=== PATIENT | male | born 1965 | race Caucasian/White ===

== ENCOUNTER 2022-05-24 17:02 | Emergency (ER) | payer BC, SELFPAY ==
[2022-05-24 17:08] VITALS: BP 158/91; PULSE 77; RESP 18; TEMP 36.3; O2SAT 99
--- NOTE | 2022-05-24 17:19 | W.ED.GENAD ---
Discharge Plan Disposition Patient Disposition: Home Condition: Stable Discharge Details Chief Complaint: Laceration Clinical Impression: Laceration of left hand Primary Care Provider: Stuart Nielson ED Provider: Obie Shafer Home Meds and New Rx's Prescriptions: No Action valacyclovir 1 gram Tablet 1,000 mg PO DAILY Discharge Instructions Instructions: Laceration (ED) Additional Instructions: you had 4 sutures placed keep the woud clean, if it gets dirty gently scrub with soap and water return in 7-10 days for suture removal or sooner if signs of infection such as spreading redness, or yellow/white discharge from the wound Medical Decision Making 57 yo male who denies chronic medical problems who comes in with cc of left hand laceration. He was unscrewing a bolt and his hand slipped and his posterior left hand got cut renato piece of sheet metal. Denies any falls or other injuries. He has an approximately 2cm laceration of the posterior left handed between the thumb and index finger. Has intact sensation and pulses and full rom of the fingers and wrist. No evidence of neurovascular or tendon injury. Will require sutures, will place local anesthetic and irrigate and evaluate further. pt had wound irrigated extensively, goes down to subcutaneous tissue, no tendon or muscle exposed, closed with 4 sutures without complications. He is stable for d/c, advised to return in 7-10 days for evaluation for suture removal and sooner if signs of infection develop Differential Diagnosis Differential Diagnosis: laceration, abrasion Sign Out No HPI General Mode of arrival: ambulatory. Date/Time Provider Initiated Documentation: 05/24/22 17:13. Limitations to Documentation: no limitations. Information obtained by: patient. History of Present Illness 57 year old M presents to the emergency department with the chief complaint of left hand laceration, described as moderate, Quality is described as aching, Patient reports no radiation. Patient started experiencing this hour(s) (1) and it has been constant. No relieving factors improve symptom(s), No exacerbating factors reported . Patient notes no other symptoms.. Patient did receive the following treatments prior to arrival, none Related Data Home Medications Medication Instructions Recorded Confirmed valacyclovir 1 gram tablet 1,000 mg PO DAILY 05/24/22 05/24/22 Allergies Allergy/AdvReac Type Severity Reaction Status Date / Time No Known Allergies Allergy Unverified 05/24/22 17:12 General Stated Complaint: Laceration DANDY: 3 Review of Systems All systems reviewed & are unremarkable except as noted in HPI and below Constitutional Constitutional: Denies chills, Denies fever(s) and Denies weakness Cardiovascular Cardiovascular: Denies chest pain and Denies dyspnea Respiratory Respiratory: Denies cough and Denies dyspnea Gastrointestinal Gastrointestinal: Denies abdominal pain, Denies nausea and Denies vomiting Integumentary/Breasts Skin/Breast: Denies rash Neurologic Neurologic: Denies weakness [facility] All Active Problems (Updated 05/24/22 @ 17:53 by Obie Shafer MD) Laceration of left hand (Acute) Social History Smoking/Tobacco Use Status: Never Smoking risk assessment performed?: Yes Alcohol Intake: current Alcohol Intake frequency: 0-2 drinks per day Alcohol type: beer, wine and hard liquor Drug use: Never Substance use type: does not use Do you feel safe at home: Yes Do you feel safe in your relationship?: Yes Additional Social history: at bedside Exam Const General: no acute distress Orientation: alert HENMT Head: normal to inspection Ears: external ears normal General nose exam: external nose normal Mouth: moist mucous membranes Eyes General: appearance normal, both eyes and all related structures Neck Neck: normal visual inspection Resp Effort & Inspection: normal respiratory effort and able to speak in complete sentences Cardio Rate: regular rate Skin General skin exam: no rashes or lesions noted Neuro General: patient alert and patient oriented x3 Extrem General: full ROM and capillary refill normal Psych Mental Status: mental status grossly normal Course Vital Signs Vital signs: Vital Signs Temperature 36.3 C L 05/24/22 17:08 Pulse 77 05/24/22 17:08 Respiratory Rate 18 05/24/22 17:08 Blood Pressure 158/91 H 05/24/22 17:08 Pulse Oximetry 99 05/24/22 17:08 Temperature 36.3 C L 05/24/22 17:08 Temperature Source Skin 05/24/22 17:08 Pulse 77 05/24/22 17:08 Respiratory Rate 18 05/24/22 17:08 Respiratory Effort Non-Labored 05/24/22 17:14 Blood Pressure 158/91 H 05/24/22 17:08 Blood Pressure Position Sitting 05/24/22 17:08 Pulse Oximetry 99 05/24/22 17:08 Oxygen Delivery Method Room Air 05/24/22 17:08 Oxygen Flow Rate 0 05/24/22 17:08 Pain Level 5 05/24/22 17:08 Procedures Laceration Laceration 1: Site: hand Side (If applicable): left Size (cm): 2 Description: linear Depth: simple, single layer Local Anesthetic: Lidocaine 1% and with Epi Amount of anesthesia used (mL): 8 Pre-repair: wound explored and irrigated extensively Skin layer closed with: nylon PAWSS Have you Been Recently Intoxicated or Drunk Within the Last 30 days?: No Have you Ever Experienced Previous Episodes of Alcohol Withdrawal?: No Have you ever Experienced Withdrawal Seizures?: No Have you ever Experienced Delirium Tremens(DT)s?: No Have you ever undergone Alcohol Rehabilitation Treatment (i.e, inpt ot outpatient treatment programs)?: No Have you ever Experienced Blackouts?: No Have you ever Combined Alcohol with other Downers within the last 90 days?: No Have you ever Combined Alcohol with any other Substance of Abuse during the last 90 days?: No Positive Blood Alcohol level on Presentation? [PCS.BAL]: No Evidence of Increased Autonomic Activity (i.e. HR>120, tremor, sweating, agitation, nausea)?: No Result: 0
== END 2022-05-24 17:58 | disposition home or self-care (01) ==
PROVIDERS: Emergency Provider Emergency Medicine; PCP Internal Medicine
DX: S61.412A Laceration without foreign body of left hand, initial encounter (principal); W26.8XXA Contact with other sharp object(s), not elsewhere classified, initial encounter
CPT/HCPCS: 12001; 90471

== ENCOUNTER 2022-06-01 08:01 | Emergency (ER) | payer BC, SELFPAY ==
[2022-06-01 08:14] VITALS: BP 194/108; PULSE 82; RESP 18; TEMP 36.7; O2SAT 98
--- NOTE | 2022-06-01 08:27 | ED.GENADUL_ITS ---
Discharge Plan Disposition Patient Disposition: Home Condition: Stable Discharge Details Clinical Impression: Visit for suture removal Primary Care Provider: Stuart Nielson ED Provider: Alanis Lizarraga Home Meds and New Rx's Prescriptions: No Action valacyclovir 1 gram Tablet 1,000 mg PO DAILY Discharge Instructions Instructions: Stitches Removal (ED) Additional Instructions: Please continue to keep clean and dry for the next 3 to 4 days. Steri-Strips will start to slough off on their own. Return for any signs of infection or concerns. Please take Tylenol or Ibuprofen with food every 4-6 hours as needed for pain and swelling. Referrals: Stuart Nielson MD [Primary Care Provider] - Return if symptoms worsen Discharge Data Discharge Date/Time-TO BE ENTERED AT DEPARTURE: 06/01/22 08:44 Medical Decision Making 57-year-old male presents to the ER with a chief complaint for suture removal, does have 4 simple interrupted sutures placed, no surrounding erythema or signs of infection or induration, Sutures removed, 4 Steri-Strips applied. Wound well approximated. Discussed home care he verbalized understanding. This text was generated using [employer] system, please disregard any oddities of phrase or misspellings. Sign Out No HPI General Mode of arrival: ambulatory . Date/Time Provider Initiated Documentation: 06/01/22 08:22 . Limitations to Documentation: no limitations . Information obtained by: patient, RN notes reviewed and old records reviewed . HPI Narrative: 57-year-old male presents to the ER with chief complaint of suture removal. Patient had 4 simple ruptured sutures placed on his the dorsum of his left hand 8 days ago. No reported problems at home. Wound is well approximated. Will place few Steri-Strips on to wound prior to discharge. Related Data Home Medications Medication Instructions Recorded Confirmed valacyclovir 1 gram tablet 1,000 mg PO DAILY 05/24/22 06/01/22 Allergies Allergy/AdvReac Type Severity Reaction Status Date / Time No Known Allergies Allergy Unverified 06/01/22 08:18 General Stated Complaint: SutureRem DANDY: 5 Review of Systems Integumentary/Breasts Skin/Breast: Reports wounds (Here for suture removal, see HPI no erythema no signs of infection) PFSH All Active Problems (Updated 06/01/22 @ 08:32 by Alanis Lizarraga NP) Laceration of left hand (Acute) Visit for suture removal (Acute) Social History Smoking/Tobacco Use Status: Never Smoking risk assessment performed?: Yes Alcohol Intake: current Alcohol Intake frequency: 0-2 drinks per day Alcohol type: beer, wine and hard liquor Drug use: Never Substance use type: does not use Do you feel safe at home: Yes Do you feel safe in your relationship?: Yes Additional Social history: at bedside Exam Extrem Left upper extremity: hand Details: laceration (Dorsum of left hand, 4 simple interrupted sutures placed, no surrounding induration or erythema.) and other (3 Steri-Strips applied after suture removal. Discussed home care he verbalized understanding.) Course Vital Signs Vital signs: Vital Signs Temperature 36.7 C 06/01/22 08:14 Pulse 82 06/01/22 08:14 Respiratory Rate 18 06/01/22 08:14 Blood Pressure 194/108 H 06/01/22 08:14 Pulse Oximetry 98 06/01/22 08:14 Temperature 36.7 C 06/01/22 08:14 Temperature Source Temporal Artery Scan 06/01/22 08:14 Pulse 82 06/01/22 08:14 Respiratory Rate 18 06/01/22 08:14 Respiratory Effort Non-Labored 06/01/22 08:17 Blood Pressure 194/108 H 06/01/22 08:14 Blood Pressure Position Sitting 06/01/22 08:14 Pulse Oximetry 98 06/01/22 08:14 Oxygen Delivery Method Room Air 06/01/22 08:14 Oxygen Flow Rate 0 06/01/22 08:14 Pain Level 0 06/01/22 08:19 Procedures Other Description: Suture removal. 4 simple interrupted sutures removed. PAWSS Have you Been Recently Intoxicated or Drunk Within the Last 30 days?: No Have you Ever Experienced Previous Episodes of Alcohol Withdrawal?: No Have you ever Experienced Withdrawal Seizures?: No Have you ever Experienced Delirium Tremens(DT)s?: No Have you ever undergone Alcohol Rehabilitation Treatment (i.e, inpt ot outpatient treatment programs)?: No Have you ever Experienced Blackouts?: No Have you ever Combined Alcohol with other Downers within the last 90 days?: No Have you ever Combined Alcohol with any other Substance of Abuse during the last 90 days?: No Positive Blood Alcohol level on Presentation? [PCS.BAL]: No Evidence of Increased Autonomic Activity (i.e. HR>120, tremor, sweating, agitation, nausea)?: No Result: 0
== END 2022-06-01 08:44 | disposition home or self-care (01) ==
PROVIDERS: Emergency Provider Registered Nurse Emergency; PCP Internal Medicine
DX: S61.412D Laceration without foreign body of left hand, subsequent encounter (principal); X58.XXXD Exposure to other specified factors, subsequent encounter

== ENCOUNTER 2022-08-12 17:43 | Outpatient (REF) | payer BC, SELFPAY ==
[2022-08-12 15:27] LABS: ALT 47 U/L (16-63); AST 23 U/L (15-37); Albumin 4.4 g/dL (3.4-5.0); Alkaline Phosphatase 84 U/L (46-116); Anion Gap 7.3 mmol/L (3-11); BUN 16 mg/dL (7-18); Bilirubin, Total 0.7 mg/dL (0.2-1.0); CO2 30.7 mmol/L (21.0-32.0); Calculated LDL 159 mg/dL (<100); Chloride 104 mmol/L (98-107); Cholesterol 241 mg/dL (<200); Estimated GFR 88.88 (mL/min/1.73m2); Glucose 106 mg/dL (74-106); HDL Cholesterol 49 mg/dL (40-60); Potassium 5.1 mmol/L (3.5-5.1); Sodium 142 mmol/L (136-145); Total Protein 7.7 g/dL (6.4-8.2); Triglyceride 165 mg/dL (<150)
== END 2022-08-12 17:44 | disposition home or self-care (01) ==
LOC: NCHCN 17:43
PROVIDERS: PCP Nurse Practitioner Family; Visit Provider Family Medicine
DX: I10 Essential (primary) hypertension (principal); E66.8 Other obesity; M79.641 Pain in right hand
CPT/HCPCS: 80053; 80061

== ENCOUNTER 2023-11-21 05:00 | Outpatient (CLI) | payer BC, SELFPAY ==
[2023-11-21 11:03] LABS: Abs Immature Grans 0.04 10^3/uL (0.0-0.06); Absolute Basophil Count 0.05 10^3/uL (0.0-0.2); Absolute Eosinophil Count 0.25 10^3/uL (0.0-0.7); Absolute Lymphocyte Count 1.97 10^3/uL (1.2-3.4); Absolute Neutrophil Count 4.86 10^3/uL (1.2-6.7); Basophils % 0.6 %; Eosinophils % 3.2 %; HCT 40.7 % (40.0-50.0); HGB 13.8 g/dL (13.5-17.5); Immature Grans % 0.5 %; MCH 31.1 pg (27.0-33.0); MCHC 33.9 % (32.0-36.0); MCV 92 fL (80-95); MPV 10.3 fL (8.0-11.0); Monocytes % 8.9 %; Neutrophils % 61.8 %; Platelet Count 173 10^3/uL (130-400); RBC 4.44 10^6/uL (4.36-5.78); RDW 11.6 % (11.8-14.1); RDW-SD 38.7 fL; WBC 7.87 10^3/uL (4.4-10.8)
[2023-11-21 11:42] LABS: ALT 55 U/L (16-63); AST 29 U/L (15-37); Albumin 4.2 g/dL (3.4-5.0); Alkaline Phosphatase 70 U/L (46-116); Anion Gap 9.4 mmol/L (3-11); BUN 19 mg/dL (7-18); Bilirubin, Total 0.6 mg/dL (0.2-1.0); CO2 26.6 mmol/L (21.0-32.0); CREATININE 0.9 mg/dL (0.70-1.30); Calcium 9.1 mg/dL (8.5-10.1); Calculated LDL 92 mg/dL (<100); Chloride 107 mmol/L (98-107); Cholesterol 158 mg/dL (<200); Estimated GFR 100.24 (mL/min/1.73m2); Ferritin 174 ng/mL (26-388); Glucose 109 mg/dL (74-106); HDL Cholesterol 47 mg/dL (40-60); Sodium 143 mmol/L (136-145); TSH (W/Ref FT4) 1.93 uIU/mL (0.36-3.74); Total Protein 7.4 g/dL (6.4-8.2); Triglyceride 98 mg/dL (<150); Vitamin B12 707 pg/mL (193-986)
[2023-11-21 11:51] LABS: Iron 90 ug/dL (65-175); Total Iron Binding Capacity 272 ug/dL (250-450)
[2023-11-22 09:08] LABS: Transferrin 215 mg/dL (201-352)
== END 2023-11-21 05:01 | disposition home or self-care (01) ==
LOC: LBO 05:01
PROVIDERS: PCP Nurse Practitioner Family; Visit Provider Nurse Practitioner Family
DX: R53.83 Other fatigue (principal); E78.5 Hyperlipidemia, unspecified; I10 Essential (primary) hypertension
CPT/HCPCS: 36415; 80053; 80061; 82607; 82728; 83540; 83550; 84443; 84466; 85025

== ENCOUNTER 2024-12-11 01:28 | Outpatient (CLI) | payer BC, SELFPAY ==
[2024-12-11 13:01] LABS: Anion Gap 6.2 mmol/L (3-11); BUN 20 mg/dL (7-18); CO2 29.8 mmol/L (21.0-32.0); CREATININE 1.1 mg/dL (0.70-1.30); Calcium 9.3 mg/dL (8.5-10.1); Calculated LDL 69 mg/dL (<100); Chloride 105 mmol/L (98-107); Cholesterol 144 mg/dL (<200); Glucose 98 mg/dL (74-106); HDL Cholesterol 46 mg/dL (>or=40); Potassium 4.6 mmol/L (3.5-5.1); Sodium 141 mmol/L (136-145); Triglyceride 145 mg/dL (<150)
[2024-12-11 13:53] LABS: Hemoglobin A1C 5.4 % (<5.7)
[2024-12-11 23:41] LABS: PSA, Screening 2.3 ng/mL (<=3.5)
== END 2024-12-11 01:29 | disposition home or self-care (01) ==
LOC: LOS 01:28
PROVIDERS: PCP Nurse Practitioner Family; Visit Provider Nurse Practitioner Family
DX: I10 Essential (primary) hypertension (principal); Z13.220 Encounter for screening for lipoid disorders; Z13.1 Encounter for screening for diabetes mellitus; Z12.5 Encounter for screening for malignant neoplasm of prostate
CPT/HCPCS: 36415; 80048; 80061; 84153; 83036

== ENCOUNTER 2024-12-29 00:07 | Outpatient (RCR) | payer BC, SELFPAY ==
[2024-12-26] MEDS: ERTAPENEM 1 GM in Normal Saline 50 ML IVPB (10:46)
[2024-12-26] MEDS: Normal Saline Flush 10 ML SYR IVP (10:46)
[2024-12-27] MEDS: ERTAPENEM 1 GM in Normal Saline 50 ML IVPB (11:12)
[2024-12-27] MEDS: Normal Saline Flush 10 ML SYR IVP (11:16)
== END 2025-01-16 23:59 | disposition home or self-care (01) ==
LOC: INF 00:07
PROVIDERS: PCP Nurse Practitioner Family; Visit Provider Family Medicine
DX: Z79.2 Long term (current) use of antibiotics (principal); T84.52XD Infection and inflammatory reaction due to internal left hip prosthesis, subsequent encounter
CPT/HCPCS: 96365; J1335

== ENCOUNTER 2024-12-30 15:46 | Outpatient (REF) | payer BC, SELFPAY ==
[2024-12-30 13:43] LABS: Abs Immature Grans 0.08 10^3/uL (0.0-0.06); HCT 35.8 % (40.0-50.0); HGB 11.4 g/dL (13.5-17.5); Immature Grans % 0.7 %; MCH 29.1 pg (27.0-33.0); MCHC 31.8 % (32.0-36.0); MCV 91 fL (80-95); MPV 10.1 fL (8.0-11.0); Platelet Count 322 10^3/uL (130-400); RBC 3.92 10^6/uL (4.36-5.78); RDW 12.6 % (11.8-14.1); RDW-SD 42.1 fL; WBC 10.83 10^3/uL (4.4-10.8)
[2024-12-30 14:09] LABS: ALT 41 U/L (16-63); AST 23 U/L (15-37); Albumin 4.0 g/dL (3.4-5.0); Alkaline Phosphatase 82 U/L (46-116); Anion Gap 9.8 mmol/L (3-11); BUN 21 mg/dL (7-18); Bilirubin, Total 0.2 mg/dL (0.2-1.0); C-Reactive Protein 1.35 mg/dL (<or=0.5); CO2 27.2 mmol/L (21.0-32.0); Calcium 9.5 mg/dL (8.5-10.1); Chloride 102 mmol/L (98-107); Estimated GFR 103.22 (mL/min/1.73m2); Glucose 106 mg/dL (74-106); Potassium 4.6 mmol/L (3.5-5.1); Sodium 139 mmol/L (136-145); Total Protein 7.5 g/dL (6.4-8.2)
== END 2024-12-30 15:47 | disposition home or self-care (01) ==
LOC: LBN 15:46
PROVIDERS: PCP Nurse Practitioner Family; Referring Provider Orthopaedic Surgery Adult Reconstructive Orthopaedic Surgery; Visit Provider Internal Medicine
DX: Z79.2 Long term (current) use of antibiotics (principal); T84.52XD Infection and inflammatory reaction due to internal left hip prosthesis, subsequent encounter
CPT/HCPCS: 80053; 85025; 86140

== ENCOUNTER 2025-01-06 15:47 | Outpatient (REF) | payer BC, SELFPAY ==
[2025-01-06 13:49] LABS: Abs Immature Grans 0.04 10^3/uL (0.0-0.06); HCT 36.2 % (40.0-50.0); HGB 11.4 g/dL (13.5-17.5); Immature Grans % 0.5 %; MCH 28.4 pg (27.0-33.0); MCHC 31.5 % (32.0-36.0); MCV 90 fL (80-95); MPV 10.2 fL (8.0-11.0); Platelet Count 328 10^3/uL (130-400); RBC 4.01 10^6/uL (4.36-5.78); RDW 12.4 % (11.8-14.1); RDW-SD 40.6 fL; WBC 8.40 10^3/uL (4.4-10.8)
[2025-01-06 14:20] LABS: ALT 53 U/L (16-63); AST 30 U/L (15-37); Albumin 4.1 g/dL (3.4-5.0); Alkaline Phosphatase 78 U/L (46-116); Anion Gap 11.3 mmol/L (3-11); BUN 19 mg/dL (7-18); Bilirubin, Total 0.3 mg/dL (0.2-1.0); CO2 25.7 mmol/L (21.0-32.0); Calcium 9.4 mg/dL (8.5-10.1); Chloride 104 mmol/L (98-107); Estimated GFR 103.22 (mL/min/1.73m2); Glucose 96 mg/dL (74-106); Potassium 4.5 mmol/L (3.5-5.1); Sodium 141 mmol/L (136-145); Total Protein 7.5 g/dL (6.4-8.2)
[2025-01-06 14:21] LABS: C-Reactive Protein < 0.50 mg/dL (<or=0.5)
== END 2025-01-06 15:48 | disposition home or self-care (01) ==
LOC: LBN 15:47
PROVIDERS: PCP Nurse Practitioner Family; Visit Provider Orthopaedic Surgery Adult Reconstructive Orthopaedic Surgery
DX: T84.52XD Infection and inflammatory reaction due to internal left hip prosthesis, subsequent encounter (principal)
CPT/HCPCS: 80053; 85025; 86140

== ENCOUNTER 2025-01-13 21:59 | Outpatient (REF) | payer BC, SELFPAY ==
[2025-01-13 22:19] LABS: Abs Immature Grans 0.02 10^3/uL (0.0-0.06); HCT 35.8 % (40.0-50.0); HGB 11.5 g/dL (13.5-17.5); Immature Grans % 0.2 %; MCH 29.1 pg (27.0-33.0); MCHC 32.1 % (32.0-36.0); MCV 91 fL (80-95); MPV 10.9 fL (8.0-11.0); Platelet Count 218 10^3/uL (130-400); RBC 3.95 10^6/uL (4.36-5.78); RDW 12.5 % (11.8-14.1); RDW-SD 41.1 fL; WBC 8.79 10^3/uL (4.4-10.8)
[2025-01-13 22:36] LABS: ALT 69 U/L (16-63); AST 34 U/L (15-37); Albumin 4.3 g/dL (3.4-5.0); Alkaline Phosphatase 87 U/L (46-116); Anion Gap 9.4 mmol/L (3-11); BUN 18 mg/dL (7-18); Bilirubin, Total 0.3 mg/dL (0.2-1.0); CO2 27.6 mmol/L (21.0-32.0); Calcium 9.7 mg/dL (8.5-10.1); Chloride 105 mmol/L (98-107); Estimated GFR 103.22 (mL/min/1.73m2); Glucose 90 mg/dL (74-106); Potassium 4.1 mmol/L (3.5-5.1); Sodium 142 mmol/L (136-145); Total Protein 7.4 g/dL (6.4-8.2)
[2025-01-13 22:41] LABS: C-Reactive Protein < 0.50 mg/dL (<or=0.5)
== END 2025-01-13 22:00 | disposition home or self-care (01) ==
LOC: LBN 21:59
PROVIDERS: PCP Nurse Practitioner Family; Visit Provider Orthopaedic Surgery Adult Reconstructive Orthopaedic Surgery
DX: Z79.2 Long term (current) use of antibiotics (principal); T84.52XD Infection and inflammatory reaction due to internal left hip prosthesis, subsequent encounter
CPT/HCPCS: 80053; 85025; 86140

== ENCOUNTER 2025-01-20 03:21 | Outpatient (CLI) | payer BC, SELFPAY ==
[2025-01-20 12:16] LABS: Abs Immature Grans 0.01 10^3/uL (0.0-0.06); HCT 37.7 % (40.0-50.0); HGB 12.1 g/dL (13.5-17.5); Immature Grans % 0.2 %; MCH 29.5 pg (27.0-33.0); MCHC 32.1 % (32.0-36.0); MCV 92 fL (80-95); MPV 10.9 fL (8.0-11.0); Platelet Count 184 10^3/uL (130-400); RBC 4.10 10^6/uL (4.36-5.78); RDW 13.0 % (11.8-14.1); RDW-SD 43.7 fL; WBC 6.01 10^3/uL (4.4-10.8)
[2025-01-20 12:43] LABS: ALT 54 U/L (16-63); AST 30 U/L (15-37); Albumin 4.1 g/dL (3.4-5.0); Alkaline Phosphatase 82 U/L (46-116); Anion Gap 6.8 mmol/L (3-11); BUN 28 mg/dL (7-18); Bilirubin, Total 0.5 mg/dL (0.2-1.0); CO2 28.2 mmol/L (21.0-32.0); Calcium 9.7 mg/dL (8.5-10.1); Chloride 104 mmol/L (98-107); Estimated GFR 78.30 (mL/min/1.73m2); Glucose 103 mg/dL (74-106); Potassium 4.5 mmol/L (3.5-5.1); Sodium 139 mmol/L (136-145); Total Protein 7.6 g/dL (6.4-8.2)
[2025-01-20 12:44] LABS: C-Reactive Protein < 0.50 mg/dL (<or=0.5)
== END 2025-01-20 03:22 | disposition home or self-care (01) ==
LOC: LOS 03:21
PROVIDERS: PCP Nurse Practitioner Family; Visit Provider Nurse Practitioner
DX: T84.52XD Infection and inflammatory reaction due to internal left hip prosthesis, subsequent encounter (principal); A49.1 Streptococcal infection, unspecified site; A49.8 Other bacterial infections of unspecified site; Z79.2 Long term (current) use of antibiotics
CPT/HCPCS: 36415; 80053; 85025; 86140

== ENCOUNTER 2025-01-27 04:41 | Outpatient (CLI) | payer BC, SELFPAY ==
[2025-01-27 12:42] LABS: Abs Immature Grans 0.03 10^3/uL (0.0-0.06); HCT 36.2 % (40.0-50.0); HGB 11.6 g/dL (13.5-17.5); Immature Grans % 0.5 %; MCH 29.1 pg (27.0-33.0); MCHC 32.0 % (32.0-36.0); MCV 91 fL (80-95); MPV 10.7 fL (8.0-11.0); Platelet Count 182 10^3/uL (130-400); RBC 3.99 10^6/uL (4.36-5.78); RDW 13.1 % (11.8-14.1); RDW-SD 43.2 fL; WBC 5.72 10^3/uL (4.4-10.8)
[2025-01-27 12:49] LABS: ALT 45 U/L (16-63); AST 26 U/L (15-37); Albumin 3.8 g/dL (3.4-5.0); Alkaline Phosphatase 75 U/L (46-116); Anion Gap 6.8 mmol/L (3-11); BUN 23 mg/dL (7-18); Bilirubin, Total 0.3 mg/dL (0.2-1.0); C-Reactive Protein < 0.50 mg/dL (<or=0.5); CO2 28.2 mmol/L (21.0-32.0); Calcium 9.3 mg/dL (8.5-10.1); Chloride 105 mmol/L (98-107); Estimated GFR 99.62 (mL/min/1.73m2); Glucose 97 mg/dL (74-106); Potassium 4.2 mmol/L (3.5-5.1); Sodium 140 mmol/L (136-145); Total Protein 7.0 g/dL (6.4-8.2)
== END 2025-01-27 04:42 | disposition home or self-care (01) ==
LOC: LOS 04:41
PROVIDERS: PCP Nurse Practitioner Family; Visit Provider Nurse Practitioner
DX: T84.52XD Infection and inflammatory reaction due to internal left hip prosthesis, subsequent encounter (principal); A49.1 Streptococcal infection, unspecified site; A49.8 Other bacterial infections of unspecified site; Z79.2 Long term (current) use of antibiotics
CPT/HCPCS: 36415; 80053; 85025; 86140

== ENCOUNTER 2025-02-27 04:23 | Outpatient (CLI) | payer BC, SELFPAY ==
[2025-02-27 16:24] LABS: ALT 46 U/L (16-63); AST 26 U/L (15-37); Albumin 4.1 g/dL (3.4-5.0); Alkaline Phosphatase 64 U/L (46-116); Anion Gap 8.0 mmol/L (3-11); BUN 19 mg/dL (7-18); Bilirubin, Total 0.4 mg/dL (0.2-1.0); CO2 27.0 mmol/L (21.0-32.0); Calcium 9.7 mg/dL (8.5-10.1); Chloride 105 mmol/L (98-107); Estimated GFR 87.78 (mL/min/1.73m2); Glucose 104 mg/dL (74-106); Potassium 4.4 mmol/L (3.5-5.1); Sodium 140 mmol/L (136-145); Total Protein 7.1 g/dL (6.4-8.2)
[2025-02-27 16:26] LABS: C-Reactive Protein < 0.50 mg/dL (<or=0.5)
[2025-02-27 17:00] LABS: Abs Immature Grans 0.03 10^3/uL (0.0-0.06); HCT 42.3 % (40.0-50.0); HGB 13.6 g/dL (13.5-17.5); Immature Grans % 0.4 %; MCH 29.1 pg (27.0-33.0); MCHC 32.2 % (32.0-36.0); MCV 90 fL (80-95); MPV 11.3 fL (8.0-11.0); Platelet Count 172 10^3/uL (130-400); RBC 4.68 10^6/uL (4.36-5.78); RDW 13.0 % (11.8-14.1); RDW-SD 42.9 fL; WBC 6.74 10^3/uL (4.4-10.8)
== END 2025-02-27 04:24 | disposition home or self-care (01) ==
LOC: LOS 04:23
PROVIDERS: PCP Nurse Practitioner Family; Visit Provider Nurse Practitioner
DX: T84.52XD Infection and inflammatory reaction due to internal left hip prosthesis, subsequent encounter (principal); A49.1 Streptococcal infection, unspecified site; A49.8 Other bacterial infections of unspecified site; Z79.2 Long term (current) use of antibiotics
CPT/HCPCS: 36415; 80053; 85025; 86140